=== PATIENT | male | born 1985 | race African-American/Black ===

== ENCOUNTER → 2016-10-21 | Outpatient (CLI) | payer OTHER ==
--- NOTE | 2016-10-21 09:17 | REP ---
MR CERVICAL SPINE WITHOUT CONTRAST: HISTORY: Neck pain . There is no disc bulge or herniation. The spinal canal and the neural foramina are patent. The spinal cord is normal in signal intensity. There is no intradural extramedullary lesion. Normal signal intensity is present in the cervical vertebral bodies. IMPRESSION: Normal study. Signed by Abdirahman Curtis MD 10/21/2016 09:20 A
--- NOTE | 2016-10-21 09:22 | REP ---
MR LUMBAR SPINE WITHOUT CONTRAST: HISTORY: Back pain Decreased signal intensity on T2-weighted images is present in the L5-S1 intervertebral discs. The disc is decreased in height. These findings are consistent with disc degeneration. There is no disc bulge or herniation at the L1-2 and L2-3 levels. The nerves exit the neural foramina without compression. A diffuse disc bulge is present at the L3-4 level. There is minimal compression of the thecal sac. The L3 nerves exit the neural foramina without compression. A diffuse disc bulge is present at the L4-5 level. There is minimal compression of the thecal sac. The L4 nerves exit the neural foramina without compression. A diffuse disc bulge and small central disc protrusion are present at the L5-S1 level. There is minimal compression of the thecal sac and S1 nerves as they exit the thecal sac. The L5 nerves exit the neural foramina without compression. The conus medullaris is normal in appearance terminating at the level of the L1-2 intervertebral disc. Normal signal intensity is present in the lumbar vertebral bodies. IMPRESSION: 1. Diffuse disc bulges at the L3-4 and L4-5 levels with minimal thecal sac compression. 2. Diffuse disc bulge and small central disc protrusion at the L5-S1 level with minimal compression of the thecal sac and S1 nerves as they exit the thecal sac. Signed by Abdirahman Curtis MD 10/21/2016 09:24 A
== END ==
LOC: M RAD 06:47
PROVIDERS: ATTEND Physician Assistant
DX: M54.2 Cervicalgia (principal); M51.26 Other intervertebral disc displacement, lumbar region

== ENCOUNTER 2019-03-17 00:32 | Emergency (ER) | payer OTHER, SELFPAY ==
[~2019-03-17] VITALS: Ht 185.4 cm; Wt 105.1 kg
[2019-03-17] MEDS ORDERED: diphenhydrAMINE INJ 50MG/ML VIAL (J1200) IV STA (00:52)
[2019-03-17] MEDS ORDERED: ceFAZolin SOD 1 GM in D5W MINI-BAG PLUS 50 ML IV ONE (01:00)
[2019-03-17] MEDS ORDERED: TETANUS/DIPHTHERIA TOX ADSORB ADULT 0.5ML SYR/VIAL (90714) IM ONE (01:00)
[2019-03-17] MEDS ORDERED: NS 1,000 ML IV ONE (01:00)
[2019-03-17] MEDS ORDERED: MORPHINE 4 MG/ML 1ML VIAL/SYRINGE (J2270) IV ONE (01:00)
[2019-03-17 01:05] LABS: BASO # 0.1 10^3/uL (0.0-0.2); BASO % 0.8 % (0.0-1.0); EOS # 0.2 10^3/uL (0.0-0.50); EOS % 3.1 % (0.0-3.0); HEMATOCRIT 38.4 % (42.0-52.0); HEMOGLOBIN 13.1 g/dl (13.5-17.5); LYMPH # 3.5 10^3/uL (1.5-4.5); MEAN CORPUSCULAR HEMOGLOBIN 31.7 pg (27.0-33.0); MEAN CORPUSCULAR HGB CONC 34.1 g/dl (32.0-36.5); MONO # 0.6 10^3/uL (0.0-0.8); MONO % 7.8 % (0.0-5.0); NEUTROPHILS # 3.1 10^3/uL (1.8-7.7); NEUTROPHILS % 40.9 % (36.0-66.0); PLATELET COUNT, AUTOMATED 293 10^3/uL (150-450); RED BLOOD COUNT 4.13 10^6/uL (4.30-6.10); WHITE BLOOD COUNT 7.5 10^3/uL (4.0-10.0)
[2019-03-17] MEDS ORDERED: ISOVUE-370 76% 100ML VIAL (Q9967) As Ordered ONE (01:06)
[2019-03-17 01:26] LABS: INR 1.1; PARTIAL THROMBOPLASTIN TIME 25.1 SECONDS (25.0-38.4); PROTHROMBIN TIME 13.9 SECONDS (11.8-14.0)
[2019-03-17 01:34] LABS: BLOOD UREA NITROGEN 18 MG/DL (7-18); CREATININE FOR GFR 1.37 MG/DL (0.70-1.30); GLOMERULAR FILTRATION RATE > 60.0 (>60); GLUCOSE, FASTING 126 MG/DL (70-100); POTASSIUM SERUM 3.3 MEQ/L (3.5-5.1); SODIUM LEVEL 144 MEQ/L (136-145)
[2019-03-17 01:35] LABS: CALCIUM LEVEL 8.7 MG/DL (8.5-10.1); CARBON DIOXIDE LEVEL 20 MEQ/L (21-32); CHLORIDE LEVEL 108 MEQ/L (98-107)
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
[2019-03-17 03:30] VITALS: BP 135/75
[2019-03-17] MEDS ORDERED: KETOROLAC 30 MG/ML VIAL (J1885) IV ONE (04:30)
--- NOTE | 2019-03-17 08:13 | REP ---
Chest, single PA view: There are no comparisons. There is no pneumothorax, hemothorax or pulmonary contusion. The lung kulkarni are clear. The cardiac size is normal. The soledad, mediastinum, and skeletal structures are unremarkable. Impression: Negative PA chest. Electronically Signed by Fortunato Robert MD 03/17/2019 08:04 A
== END 2019-03-17 06:58 | disposition home or self-care (01) ==
LOC: M ED 00:32
DX: S21.212A Laceration without foreign body of left back wall of thorax without penetration into thoracic cavity, initial encounter (principal); S31.114A Laceration without foreign body of abdominal wall, left lower quadrant without penetration into peritoneal cavity, initial encounter; W26.8XXA Contact with other sharp object(s), not elsewhere classified, initial encounter; Y92.410 Unspecified street and highway as the place of occurrence of the external cause; Z88.7 Allergy status to serum and vaccine
CPT/HCPCS: 12002; 71045; 71260; 74177; 80048; 85025; 85610; 85730; 90471; 90714; 96374; 96375; 99284; J0690; J1200; J1885; J2270; Q9967

== ENCOUNTER 2019-03-21 11:17 | Emergency (ER) | payer OTHER ==
[~2019-03-21] VITALS: Ht 193 cm; Wt 102.6 kg
[2019-03-21 11:17] VITALS: BP 112/66
[2019-03-21] MEDS ORDERED: BACT800T5 PO (12:35)
== END 2019-03-21 12:20 | disposition home or self-care (01) ==
LOC: M ED 11:17
DX: Z48.00 Encounter for change or removal of nonsurgical wound dressing (principal); S21.212D Laceration without foreign body of left back wall of thorax without penetration into thoracic cavity, subsequent encounter; S31.114D Laceration without foreign body of abdominal wall, left lower quadrant without penetration into peritoneal cavity, subsequent encounter; W26.8XXD Contact with other sharp object(s), not elsewhere classified, subsequent encounter

== ENCOUNTER 2019-04-04 15:18 | Emergency (ER) | payer OTHER ==
[~2019-04-04] VITALS: Ht 182.9 cm; Wt 96.6 kg
[~2019-04-04 15:18] MED LIST: BACT800T5 PO
[2019-04-04] MEDS ORDERED: BACT800T5 PO (16:21)
[2019-04-04] MEDS ORDERED: BACTRIM 160MG/800MG DS TAB PO ONE (16:30)
[2019-04-04 16:35] VITALS: BP 125/83
== END 2019-04-04 16:36 | disposition home or self-care (01) ==
LOC: M ED 15:18
DX: N49.2 Inflammatory disorders of scrotum (principal); Z88.0 Allergy status to penicillin; Z88.7 Allergy status to serum and vaccine

== ENCOUNTER 2021-04-04 13:12 | Emergency (ER) | payer OTHER ==
[~2021-04-04] VITALS: Ht 185.4 cm; Wt 77.3 kg
[2021-04-04] MEDS ORDERED: KETOROLAC 30 MG/ML 1ML VIAL IV ONE (13:20)
[2021-04-04] MEDS ORDERED: LIDOCAINE 5% (LIDODERM) PATCH TD ONE (13:25)
[2021-04-04 14:11] VITALS: BP 106/68
[2021-04-04] MEDS ORDERED: medical marijuana (14:14)
[2021-04-04] MEDS ORDERED: diazePAM 10MG/2ML SYRINGE (J3360 PER 5MG) IV ONE (15:15)
[2021-04-04] MEDS ORDERED: **NOTE PATIENT COMMENT** MISC XX SCH (21:00)
[2021-04-04] MEDS ORDERED: predniSONE 20 MG TAB PO ONE (22:45)
[2021-04-04] MEDS ORDERED: MEDR4PAK PO (22:50)
== END 2021-04-04 23:03 | disposition home or self-care (01) ==
LOC: M ED 13:12
DX: M51.27 Other intervertebral disc displacement, lumbosacral region (principal); M51.36 Other intervertebral disc degeneration, lumbar region; M48.061 Spinal stenosis, lumbar region without neurogenic claudication; X50.0XXA Overexertion from strenuous movement or load, initial encounter; Z88.7 Allergy status to serum and vaccine; Z88.0 Allergy status to penicillin
CPT/HCPCS: 72148; 96374; 96375; 99284; J1885; J3360; J7512

== ENCOUNTER 2021-10-02 09:02 | Emergency (ER) | payer OTHER ==
[~2021-10-02] VITALS: Ht 185.4 cm; Wt 95.5 kg
[~2021-10-02 09:02] MED LIST changes: +MEDR4PAK PO; +medical marijuana
[2021-10-02 12:02] VITALS: BP 136/84
== END 2021-10-02 12:08 | disposition home or self-care (01) ==
LOC: M ED 09:02
DX: S43.401A Unspecified sprain of right shoulder joint, initial encounter (principal); S30.0XXA Contusion of lower back and pelvis, initial encounter; F12.10 Cannabis abuse, uncomplicated; F11.10 Opioid abuse, uncomplicated; W10.9XXA Fall (on) (from) unspecified stairs and steps, initial encounter; Y92.009 Unspecified place in unspecified non-institutional (private) residence as the place of occurrence of the external cause; Y93.9 Activity, unspecified; Y99.9 Unspecified external cause status; Z88.0 Allergy status to penicillin; Z88.7 Allergy status to serum and vaccine

== ENCOUNTER → 2022-06-02 | Outpatient (CLI) | payer OTHER | LOC: M WUC 14:11 | PROVIDERS: ATTEND Pediatrics | DX: M43.07 Spondylolysis, lumbosacral region (principal); S39.92XD Unspecified injury of lower back, subsequent encounter ==

== ENCOUNTER 2022-09-13 12:16 | Inpatient (IN) | payer OTHER ==
[~2022-09-13] VITALS: Ht 185.4 cm; Wt 86.4 kg
[2022-09-13] MEDS ORDERED: NS 1,000 ML IV ONE ×2 (13:50→14:50)
[2022-09-13] MEDS ORDERED: CLINDAMYCIN 600 MG in IV 1 EA IV ONE (13:50)
[2022-09-13] MEDS ORDERED: ISOVUE-370 76% 100ML VIAL As Ordered ONE (14:11)
[2022-09-13] MEDS ORDERED: LIDOCAINE 2% 100MG/5ML SDV (FOR ANES.) As Ordered ONE (14:47)
[2022-09-13] MEDS ORDERED: ROCURONIUM BROMIDE 50MG/5ML VIAL As Ordered ONE (14:47)
[2022-09-13] MEDS ORDERED: propofoL 200 MG/20 ML VIAL As Ordered ONE (14:47)
[2022-09-13] MEDS ORDERED: fentaNYL 250 MCG/5 ML INJECTION As Ordered ONE (14:48)
[2022-09-13] MEDS ORDERED: ONDANSETRON 4MG 2ML VIAL As Ordered ONE ×2 (14:48→16:58)
[2022-09-13] MEDS ORDERED: MIDAZOLAM INJ 2MG/2ML VIAL (J2250 PER 1MG) As Ordered ONE ×2 (14:48→16:44)
[2022-09-13] MEDS ORDERED: ONDANSETRON 4MG 2ML VIAL IV ONE (15:00)
[2022-09-13] MEDS ORDERED: LIDOCAINE W/EPINEPHRINE 1% 20ML VIAL As Ordered ONE (15:03)
[2022-09-13] MEDS ORDERED: CLINDAMYCIN 900MG/6ML VIAL As Ordered ONE (15:03)
[2022-09-13] MEDS ORDERED: ONDANSETRON 4MG 2ML VIAL IV PRN ×2 (15:10→17:20)
[2022-09-13] MEDS ORDERED: MEROPENEM INJ 1 GM in IV 1 EA IV SCH (15:10)
[2022-09-13] MEDS ORDERED: CETACAINE SPRAY 5GM As Ordered ONE ×2 (15:11→16:41)
[2022-09-13] MEDS ORDERED: VANCOMYCIN HCL 1,000 MG, VIAL MATE ADAPTER 1 EACH in NS 250 ML IV SCH (15:20)
[2022-09-13 15:32] LABS: RSV AMPLIFICATION NEGATIVE (NEGATIVE)
[2022-09-13 16:21] LABS: BASO # 0.1 10^3/uL (0.0-0.2); BASO % 0.3 % (0.0-1.0); HEMATOCRIT 41.1 % (42.0-52.0); HEMOGLOBIN 14.5 g/dl (13.5-17.5); LYMPH # 1.5 10^3/uL (1.5-5.0); LYMPH % 9.9 % (24.0-44.0); MEAN CORPUSCULAR HGB CONC 35.3 g/dl (32.0-36.5); MEAN CORPUSCULAR VOLUME 85.1 fl (80.0-96.0); NEUTROPHILS # 11.8 10^3/uL (1.5-8.5); NEUTROPHILS % 78.3 % (36.0-66.0); PLATELET COUNT, AUTOMATED 342 10^3/uL (150-450); RED BLOOD COUNT 4.83 10^6/uL (4.30-6.10); WHITE BLOOD COUNT 15.1 10^3/uL (4.0-10.0)
[2022-09-13] MEDS ORDERED: GLYCOPYRROLATE INJ 0.2 MG/ML 2 ML VIAL As Ordered ONE (16:23)
[2022-09-13] MEDS ORDERED: LIDOCAINE VISCOUS 2% SOLN 15ML UDC As Ordered ONE (16:23)
[2022-09-13 16:35] LABS: LIPASE 23 U/L (12-53)
[2022-09-13 16:36] LABS: BILIRUBIN,DIRECT 0.5 MG/DL (<0.4)
[2022-09-13 16:37] LABS: ALBUMIN 3.7 G/DL (3.2-5.2); ALKALINE PHOSPHATASE 80 U/L (46-116); ALT/SGPT 10 U/L (7.0-40); AST/SGOT 16 U/L (<34); BILIRUBIN,TOTAL 1.5 MG/DL (0.3-1.2); BLOOD UREA NITROGEN 22 MG/DL (9-23); CALCIUM LEVEL 8.9 MG/DL (8.5-10.1); CARBON DIOXIDE LEVEL 23 MMOL/L (20-31); CHLORIDE LEVEL 98 MMOL/L (98-107); CREATININE FOR GFR 1.17 MG/DL (0.70-1.30); GLOMERULAR FILTRATION RATE > 60.0 (>60); GLUCOSE, FASTING 127 MG/DL (60-100); POTASSIUM SERUM 3.1 MMOL/L (3.5-5.1); SODIUM LEVEL 134 MMOL/L (136-145)
[2022-09-13] MEDS ORDERED: SUCCINYLCHOLINE 100MG/5ML SYRINGE As Ordered ONE (16:47)
[2022-09-13 16:52] LABS: MONO # 1.7 10^3/uL (0.0-0.8)
[2022-09-13] MEDS ORDERED: SUGAMMADEX SODIUM 500 MG/5 ML VIAL (BRIDION) As Ordered ONE (16:58)
[2022-09-13] MEDS ORDERED: oxyCODONE 5MG TAB PO PRN (17:20)
[2022-09-13] MEDS ORDERED: fentaNYL 100 MCG/2 ML INJECTION IV PRN (17:20)
[2022-09-13] MEDS ORDERED: MORPHINE 2 MG/ML 1ML VIAL IV PRN (17:20)
[2022-09-13] MEDS ORDERED: LR 1,000 ML IV SCH (17:20)
[2022-09-13 18:40] LABS: INR 1.15; PROTHROMBIN TIME 14.9 SECONDS (12.5-14.5)
[2022-09-13 20:00] VITALS: BP 129/76
[2022-09-13] MEDS ORDERED: VANCOMYCIN HCL 1,000 MG, VIAL MATE ADAPTER 1 EACH in D5W 250 ML IV ONE (20:00)
[2022-09-13] MEDS: NS 1,000 ML IV SCH (20:24)
[2022-09-13] MEDS: KCL 10MEQ/100ML SWI (KRUN) 10 MEQ in IV 1 EA IV SCH ×3 (20:26→23:04)
[2022-09-13] MEDS ORDERED: VANCOMYCIN HCL 750 MG, VIAL MATE ADAPTER 1 EACH in D5W 250 ML IV ONE (21:00)
[2022-09-13] MEDS: CLINDAMYCIN 900 MG in IV 1 EA IV SCH (23:04)
[2022-09-14] VITALS: BP 115/62
[2022-09-14] MEDS: NS 1,000 ML IV SCH ×2 (01:24→07:10)
[2022-09-14] MEDS: VANCOMYCIN HCL 750 MG, VIAL MATE ADAPTER 1 EACH in D5W 250 ML IV SCH ×2 (02:02→10:13)
[2022-09-14] MEDS: VANCOMYCIN HCL 500 MG in D5W MINI-BAG PLUS 100 ML IV SCH ×2 (03:34→10:13)
[2022-09-14 04:00] VITALS: BP 110/60
[2022-09-14 05:07] LABS: BASO % 0.1 % (0.0-1.0); HEMATOCRIT 36.6 % (42.0-52.0); HEMOGLOBIN 12.8 g/dl (13.5-17.5); LYMPH # 1.1 10^3/uL (1.5-5.0); LYMPH % 6.3 % (24.0-44.0); MEAN CORPUSCULAR HEMOGLOBIN 30.5 pg (27.0-33.0); MEAN CORPUSCULAR VOLUME 87.1 fl (80.0-96.0); MONO # 1.2 10^3/uL (0.0-0.8); MONO % 6.9 % (2.0-8.0); NEUTROPHILS # 14.8 10^3/uL (1.5-8.5); NEUTROPHILS % 86.2 % (36.0-66.0); PLATELET COUNT, AUTOMATED 317 10^3/uL (150-450); WHITE BLOOD COUNT 17.2 10^3/uL (4.0-10.0)
[2022-09-14 05:33] LABS: BLOOD UREA NITROGEN 16 MG/DL (9-23); CALCIUM LEVEL 8.4 MG/DL (8.5-10.1); CARBON DIOXIDE LEVEL 28 MMOL/L (20-31); CHLORIDE LEVEL 98 MMOL/L (98-107); CREATININE FOR GFR 0.92 MG/DL (0.70-1.30); GLOMERULAR FILTRATION RATE > 60.0 (>60); GLUCOSE, FASTING 117 MG/DL (60-100); POTASSIUM SERUM 3.6 MMOL/L (3.5-5.1); SODIUM LEVEL 136 MMOL/L (136-145)
[2022-09-14] MEDS: CLINDAMYCIN 900 MG in IV 1 EA IV SCH ×2 (05:50→15:06)
[2022-09-14 08:00] VITALS: BP 120/76
[2022-09-14] MEDS ORDERED: ENOXAPARIN 40MG/0.4ML SYRINGE (J1650 PER 10MG) SC SCH (09:00)
[2022-09-14 12:00] VITALS: BP 116/58
[2022-09-14] MEDS ORDERED: HOME MED LIST COMPLETE! XX SCH (15:45)
[2022-09-14] MEDS ORDERED: IBUP-1022 PO (16:08)
[2022-09-14] MEDS ORDERED: PROBCAP14 PO (16:08)
[2022-09-14] MEDS ORDERED: CLEO300C2 PO (16:08)
[2022-09-14] MEDS ORDERED: TYLE650T38 PO (16:08)
== END 2022-09-14 18:17 | disposition home or self-care (01) | DRG 97 ==
LOC: M ED 12:16 → EDBD 12:16 → M ED INP 15:19 → M PCU 18:11 → M ICU 18:16
PROVIDERS: ADMIT Internal Medicine; ATTEND Student in an Organized Health Care Education/Training Program
PROC: 0C9P0ZZ Drainage of Tonsils, Open Approach (ICD-10-PCS; principal; 2022-09-13 14:42)
DX: J36 Peritonsillar abscess (principal); N17.9 Acute kidney failure, unspecified; E87.1 Hypo-osmolality and hyponatremia; R13.10 Dysphagia, unspecified; E87.6 Hypokalemia; Z88.0 Allergy status to penicillin; Z88.7 Allergy status to serum and vaccine

== ENCOUNTER 2024-03-08 09:48 | Emergency (ER) | payer OTHER ==
[~2024-03-08] VITALS: Ht 185.4 cm; Wt 91.6 kg
[~2024-03-08 09:48] MED LIST changes: +CLEO300C2 PO; +IBUP-1022 PO; +PROBCAP14 PO; +TYLE650T38 PO
[2024-03-08 09:51] VITALS: TEMP 98.1
[2024-03-08 10:28] LABS: BASO % 0.7 % (0.0-1.0); EOS # 0.2 10^3/uL (0.0-0.5); EOS % 3.7 % (0.0-3.0); HEMATOCRIT 40.9 % (42.0-52.0); HEMOGLOBIN 14.1 g/dl (13.5-17.5); LYMPH # 1.4 10^3/uL (1.5-5.0); LYMPH % 23.7 % (24.0-44.0); MEAN CORPUSCULAR HEMOGLOBIN 30.9 pg (27.0-33.0); MEAN CORPUSCULAR HGB CONC 34.5 g/dl (32.0-36.5); MEAN CORPUSCULAR VOLUME 89.7 fl (80.0-96.0); MONO # 0.7 10^3/uL (0.0-0.8); MONO % 11.7 % (2.0-8.0); NEUTROPHILS # 3.6 10^3/uL (1.5-8.5); PLATELET COUNT, AUTOMATED 320 10^3/uL (150-450); RED BLOOD COUNT 4.56 10^6/uL (4.30-6.10)
[2024-03-08 11:00] LABS: ALBUMIN 3.8 G/DL (3.2-5.2); ALKALINE PHOSPHATASE 68 U/L (46-116); ALT/SGPT 25 U/L (7.0-40); AST/SGOT 21 U/L (<34); BILIRUBIN,TOTAL 0.3 MG/DL (0.3-1.2); BLOOD UREA NITROGEN 19 MG/DL (9-23); CALCIUM LEVEL 8.7 MG/DL (8.5-10.1); CARBON DIOXIDE LEVEL 30 MMOL/L (20-31); CHLORIDE LEVEL 104 MMOL/L (98-107); CREATININE FOR GFR 1.07 MG/DL (0.70-1.30); GLOMERULAR FILTRATION RATE > 60.0 (>60); GLUCOSE, FASTING 106 MG/DL (60-100); POTASSIUM SERUM 3.7 MMOL/L (3.5-5.1); SODIUM LEVEL 140 MMOL/L (136-145); TOTAL PROTEIN 6.9 G/DL (5.7-8.2)
[2024-03-08 12:33] LABS: CK-MB VALUE MASS 2.1 NG/ML (<3.6)
[2024-03-08] MEDS ORDERED: CIPR-249 PO (12:34)
[2024-03-08 12:37] LABS: THYROXINE (T4) 6.9 UG/DL (4.5-10.9)
[2024-03-08 12:38] LABS: THYROID STIMULATING HORMONE 1.539 uIU/ML (0.55-4.78)
[2024-03-08 12:39] LABS: FREE THYROXINE INDEX 2.8 % (1.4-3.8); T UPTAKE 40.5 % (22.5-37.0)
[2024-03-08 12:40] LABS: MB/CK RELATIVE INDEX 0.54 (< OR =4)
[2024-03-08 15:29] LABS: BARBITURATES URINE NEGATIVE (NEGATIVE)
[2024-03-08 15:30] VITALS: BP 112/70
[2024-03-08 15:30] LABS: BENZODIAZEPINES URINE NEGATIVE (NEGATIVE); METHADONE URINE NEGATIVE (NEGATIVE); OPIATES URINE NEGATIVE (NEGATIVE); PHENCYCLIDINE URINE NEGATIVE (NEGATIVE)
[2024-03-08 15:31] LABS: AMPHETAMINES LEVEL URINE POSITIVE (NEGATIVE); CANNABINOIDS URINE POSITIVE (NEGATIVE); COCAINE METABOLITE URINE POSITIVE (NEGATIVE)
[2024-03-08 15:33] VITALS: O2SAT 100
== END 2024-03-08 15:51 | disposition home or self-care (01) ==
LOC: M ED 09:48
DX: N39.0 Urinary tract infection, site not specified (principal); R56.9 Unspecified convulsions; F12.10 Cannabis abuse, uncomplicated; F19.10 Other psychoactive substance abuse, uncomplicated; F15.10 Other stimulant abuse, uncomplicated; I44.4 Left anterior fascicular block; Z88.0 Allergy status to penicillin; Z88.7 Allergy status to serum and vaccine; Z79.1 Long term (current) use of non-steroidal anti-inflammatories (NSAID); Z79.2 Long term (current) use of antibiotics; Z79.899 Other long term (current) drug therapy

== ENCOUNTER 2024-03-13 18:46 | Emergency (ER) | payer OTHER ==
[~2024-03-13] VITALS: Ht 185.4 cm; Wt 88.4 kg
[~2024-03-13 18:46] MED LIST changes: +CIPR-249 PO
[2024-03-13 18:47] VITALS: BP 133/69; TEMP 98; O2SAT 99
== END 2024-03-13 21:37 | disposition left against medical advice (07) ==
LOC: M ED 18:46
DX: Z53.21 Procedure and treatment not carried out due to patient leaving prior to being seen by health care provider (principal)

== ENCOUNTER 2024-04-12 02:26 | Emergency (ER) | payer OTHER ==
[~2024-04-12] VITALS: Ht 185.4 cm; Wt 98.8 kg
[2024-04-12 04:00] VITALS: BP 119/69; TEMP 97.6; O2SAT 100
== END 2024-04-12 08:00 | disposition left against medical advice (07) ==
LOC: M ED 02:26
DX: Z53.21 Procedure and treatment not carried out due to patient leaving prior to being seen by health care provider (principal)

== ENCOUNTER → 2024-04-25 | Outpatient (REF) | payer OTHER, BC ==
[2024-04-25 13:54] LABS: BASO % 0.7 % (0.0-1.0); EOS # 0.1 10^3/uL (0.0-0.5); EOS % 2.4 % (0.0-3.0); HEMATOCRIT 42.4 % (42.0-52.0); HEMOGLOBIN 14.3 g/dl (13.5-17.5); LYMPH # 1.5 10^3/uL (1.5-5.0); LYMPH % 28.3 % (24.0-44.0); MEAN CORPUSCULAR HEMOGLOBIN 30.2 pg (27.0-33.0); MEAN CORPUSCULAR HGB CONC 33.7 g/dl (32.0-36.5); MEAN CORPUSCULAR VOLUME 89.5 fl (80.0-96.0); MONO # 0.6 10^3/uL (0.0-0.8); MONO % 10.5 % (2.0-8.0); NEUTROPHILS # 3.2 10^3/uL (1.5-8.5); NEUTROPHILS % 57.9 % (36.0-66.0); PLATELET COUNT, AUTOMATED 416 10^3/uL (150-450); RED BLOOD COUNT 4.74 10^6/uL (4.30-6.10); WHITE BLOOD COUNT 5.4 10^3/uL (4.0-10.0)
[2024-04-25 14:02] LABS: THYROID STIMULATING HORMONE 1.336 uIU/ML (0.55-4.78)
[2024-04-25 14:03] LABS: ALKALINE PHOSPHATASE 76 U/L (46-116); ALT/SGPT 27 U/L (7.0-40); AST/SGOT 22 U/L (<34); BILIRUBIN,TOTAL 0.6 MG/DL (0.3-1.2); BLOOD UREA NITROGEN 22 MG/DL (9-23); CALCIUM LEVEL 9.7 MG/DL (8.5-10.1); CARBON DIOXIDE LEVEL 26 MMOL/L (20-31); CHLORIDE LEVEL 106 MMOL/L (98-107); CREATININE FOR GFR 1.01 MG/DL (0.70-1.30); GLOMERULAR FILTRATION RATE > 60.0 (>60); GLUCOSE, FASTING 80 MG/DL (60-100); SODIUM LEVEL 140 MMOL/L (136-145); TOTAL PROTEIN 7.5 G/DL (5.7-8.2)
[2024-04-25 14:28] LABS: HEMOGLOBIN A1c 5.4 % (4.0-6.0)
== END ==
LOC: M LAB REF 12:56
PROVIDERS: ATTEND Pediatrics
DX: R55 Syncope and collapse (principal)

== ENCOUNTER → 2024-04-28 | Outpatient (CLI) | payer BC, OTHER | LOC: M EKG 08:24 | PROVIDERS: ATTEND Pediatrics | DX: R55 Syncope and collapse (principal) ==

== ENCOUNTER 2024-08-22 06:16 | Emergency (ER) | payer BC ==
[~2024-08-22] VITALS: Ht 185.4 cm; Wt 96.7 kg
[2024-08-22 06:17] VITALS: BP 120/70; TEMP 97.6; O2SAT 99
== END 2024-08-22 10:47 | disposition left against medical advice (07) ==
LOC: M ED 06:16
DX: Z53.21 Procedure and treatment not carried out due to patient leaving prior to being seen by health care provider (principal)

== ENCOUNTER 2025-02-06 11:26 | Inpatient (IN) | payer BC ==
[~2025-02-06] VITALS: Ht 185.4 cm; Wt 97.0 kg
[2025-02-06] MEDS: KETOROLAC 30 MG/ML 1ML VIAL IV ONE (12:33)
[2025-02-06] MEDS: VANCOMYCIN HCL 2,000 MG, VIAL MATE ADAPTER 1 EACH in NS 500 ML IV ONE (12:33)
[2025-02-06 13:15] LABS: HIV 1&2 SCREEN NEGATIVE (NEGATIVE)
[2025-02-06 13:36] LABS: BASO # 0.1 10^3/uL (0.0-0.2); BASO % 0.5 % (0.0-1.0); EOS # 0.1 10^3/uL (0.0-0.5); EOS % 0.9 % (0.0-3.0); HEMATOCRIT 35.9 % (42.0-52.0); HEMOGLOBIN 12.4 g/dl (13.5-17.5); MEAN CORPUSCULAR HEMOGLOBIN 30.5 pg (27.0-33.0); MEAN CORPUSCULAR HGB CONC 34.5 g/dl (32.0-36.5); MEAN CORPUSCULAR VOLUME 88.2 fl (80.0-96.0); MONO # 0.5 10^3/uL (0.0-0.8); MONO % 5.5 % (2.0-8.0); NEUTROPHILS # 6.9 10^3/uL (1.5-8.5); NEUTROPHILS % 71.8 % (36.0-66.0); PLATELET COUNT, AUTOMATED 329 10^3/uL (150-450); RED BLOOD COUNT 4.07 10^6/uL (4.30-6.10); WHITE BLOOD COUNT 9.6 10^3/uL (4.0-10.0)
[2025-02-06 13:41] LABS: C REACTIVE PROTEIN QUANTITATIV 2.93 MG/DL (<1.0)
[2025-02-06 13:42] LABS: BLOOD UREA NITROGEN 13 MG/DL (9-23); CALCIUM LEVEL 8.8 MG/DL (8.5-10.1); CARBON DIOXIDE LEVEL 27 MMOL/L (20-31); CHLORIDE LEVEL 106 MMOL/L (98-107); CREATININE FOR GFR 0.83 MG/DL (0.70-1.30); GLOMERULAR FILTRATION RATE > 90.0 (>60); GLUCOSE, FASTING 132 MG/DL (60-100); POTASSIUM SERUM 3.1 MMOL/L (3.5-5.1); SODIUM LEVEL 142 MMOL/L (136-145)
[2025-02-06 13:45] LABS: ERYTHROCYTE SEDIMENTATION RATE 29 mm/hr (0-15)
[2025-02-06 13:49] LABS: PROCALCITONIN <0.04 ng/ml
[2025-02-06] MEDS ORDERED: NALOXONE INJ 0.4MG/1ML VIAL IV PRN (14:55)
[2025-02-06] MEDS ORDERED: KETOROLAC 30 MG/ML 1ML VIAL IV SCH (14:55)
[2025-02-06] MEDS ORDERED: VANCOMYCIN HCL 1,000 MG, VIAL MATE ADAPTER 1 EACH in NS 250 ML IV SCH (14:55)
[2025-02-06] MEDS ORDERED: MORPHINE 10 MG/ML 1ML VIAL IV PRN (14:55)
[2025-02-06] MEDS ORDERED: traMADol 50 MG TAB PO PRN (15:00)
[2025-02-06] MEDS ORDERED: METR-265 PO (15:09)
[2025-02-06] MEDS ORDERED: BACT800T5 PO (15:09)
[2025-02-06] MEDS: POTASSIUM CHLORIDE 10MEQ SR TABLET PO ONE (15:10)
[2025-02-06] MEDS ORDERED: HOME MED LIST COMPLETE! XX SCH (15:15)
[2025-02-06] MEDS: metroNIDAZOLE 500 MG in IV 1 EA IV ONE (15:23)
[2025-02-06] MEDS: DOXYCYCLINE HYCLATE 100 MG in DEXTROSE 5% (D5W) MINI-BAG PLU 100 ML IV ONE (16:19)
[2025-02-06 17:30] VITALS: BP 118/58; TEMP 98; O2SAT 99
[2025-02-06] MEDS ORDERED: ACETAMINOPHEN 500 MG TAB PO SCH (18:00)
[2025-02-07] MEDS ORDERED: METR-265 PO (11:49)
[2025-02-07] MEDS ORDERED: BACTDSTA PO (11:49)
[2025-02-11] MEDS ORDERED: METR-265 PO (10:24)
[2025-02-11] MEDS ORDERED: BACTDSTA PO (10:24)
[2025-02-11] MEDS ORDERED: PERC5TAB12 PO (10:24)
== END 2025-02-06 17:30 | disposition left against medical advice (07) | DRG 342 ==
LOC: M ED 11:26 → M ED INP 14:49
PROVIDERS: ADMIT General Practice; ATTEND General Practice
DX: S62.398A Other fracture of other metacarpal bone, initial encounter for closed fracture (principal); Z88.0 Allergy status to penicillin; Y04.0XXA Assault by unarmed brawl or fight, initial encounter; Y92.009 Unspecified place in unspecified non-institutional (private) residence as the place of occurrence of the external cause; Z88.7 Allergy status to serum and vaccine